=== PATIENT | male | born 1960 ===

== ENCOUNTER 2017-10-19 14:12 | Emergency (ER) | payer OTHER ==
[2017-10-19 14:19] VITALS: BP 108/73
[2017-10-19] MEDS ORDERED: Lidocain 1% EPI 1:100,000 * 30 ML MDV INJ ONE (15:15)
[2017-10-19] MEDS ORDERED: Lidocaine 1%* 5 ML VIAL ONE (15:16)
--- NOTE | 2017-10-19 15:55 | ED ---
Pavithra Rousseau Jade, scribed for FabianoVirgil simons MD on 10/19/17 at 1539 . Head Injury - HPI Summary HPI Summary: In Room Note: Pt is a 57 y/o male who [place] [facility] [place]. Pt has had Parkinsons Disease for 5 years. According to and daughter, he tripped and hit his head resulting in a laceration over his left eyebrow. The fall itself was not witnessed, but his daughter saw him 30 seconds after and denies any LOC and states he was alert and oriented. Pt denies being injured elsewhere. Nurses Note: Fell injuring head approx 30 min ago, 5/10 pain intensity. Has a bandage over laceration. MD Note: Visit history Parkinsons, vital signs stable. 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 Mechanism Of Injury: Fall From A Standing Position Onset/Duration: Started Minutes Ago - 30 minutes ago Onset of Pain: Post Accident Severity Currently: Moderate Pain Intensity: 5 Pain Scale Used: 0-10 Numeric Location of Head Injury: Other: - Over left eyebrow - Allergies/Home Medications Allergies/Adverse Reactions: Allergies Allergy/AdvReac Type Severity Reaction Status Date / Time No Known Allergies Allergy Verified 10/19/17 14:21 PMH/Surg Hx/FS Hx/Imm Hx Endocrine/Hematology History: Denies: Hx Diabetes Cardiovascular History: Denies: Hx Hypertension, Hx Pacemaker/ICD History: Denies: Hx Dialysis, Hx Renal Disease Sensory History: Denies: Hx Hearing Aid Neurological History: Reports: Other Neuro Impairments/Disorders - Hx of persistent headaches 7 yr ago, [place] [facility] [place] Parkinson's Dz Psychiatric History: Denies: Hx Panic Disorder - Surgical History Surgery Procedure, Year, and Place: appendectomy at age 12 Infectious Disease History: No Infectious Disease History: Denies: Traveled Outside the [place] in Last 30 Days - Family History Known Family History: Negative: Hypertension - Social History Alcohol Use: None Substance Use Type: Reports: None Smoking Status (MU): Never Smoked Tobacco Review of Systems - ROS Summary Review of Systems Summary: POSITIVE: Laceration over left eyebrow, head pain NEGATIVE: LOC, musculoskeletal pain Positive: Other - Head pain. Negative: Fever Negative: Shortness Of Breath Positive: Other - Laceration over left eyebrow Neurological: Other - NEGATIVE LOC All Other Systems Reviewed And Are Negative: Yes Physical Exam - Summary Physical Exam Summary: Appearance: Pt is sitting stiff in a wheelchair. Minimally responsive due to Parkinsons Disease, but does appear to understand and answer appropriately. Eyes: Conjunctiva are clear. The globe of the eye doesnt appear to be involved. Mild swelling of the upper left lid. PERRLA. EOMI. Examination of the head is abnormal, with evidence of injury. No zygomatic step off, or hemotympanum. ENT: The hearing is grossly normal, the pharynx is normal, and the TMs are normal. There is no muffled or hoarse voice. Neck: The neck is supple and there is no lymphadenopathy. Respiratory: The chest is nontender. The lungs are clear, there are normal breath sounds, and there is no respiratory distress. Cardiovascular: Heart is regular rate and rhythm. There is no murmur. Abdomen: The abdomen is soft and nontender. There is no organomegaly. Bowel sounds: present Musculoskeletal: Strength is intact. The patient moves all extremities. Palpation of the spine produces no tenderness. Neurological: The patient is alert. Psychological: The patient displays age appropriate behavior. Skin: Negative for rashes. Face shows 3.0 cm linear laceration over the lateral aspect of the left eyebrow. Triage Information Reviewed: Yes Vital Signs On Initial Exam: Initial Vitals Temp Pulse Resp BP Pulse Ox 97.4 F 72 16 108/73 100 10/19/17 14:15 10/19/17 14:15 10/19/17 14:15 10/19/17 14:15 10/19/17 14:15 Vital Signs Reviewed: Yes Procedures - Laceration/Wound Repair 1 Location: head - Left eyebrow Description: Linear Anesthesia: Lido - Lidocaine without epinephrine Length, Depth and Shape: 3 cm linear laceration open to 3 mm over the left eyebrow. The area was cleaned, prepped, and draped. Lidocaine w/o epinephrine was injected with good analgesia. 9 5-0 proline sutures were placed in a running fashion. Good approximation and hemostasis. The area was dressed. Approximation after repair was < 1 mm. Betadine Prep?: Yes Laceration/Wound Explored: clean Suture Type: Prolene - 5-0 Number of Sutures: 9 Sterile Dressing Applied?: Yes Diagnostics - Vital Signs Vital Signs Temp Pulse Resp BP Pulse Ox 10/19/17 14:15 97.4 F 72 16 108/73 100 - Laboratory Lab Statement: Any lab studies that have been ordered have been reviewed, and results considered in the medical decision making process. Head Injury Course/Dx Course Of Treatment: Parkinson patient with injury above the left eyebrow from a fall. Eyebrow is swollen but there is no injury to the globe itself. The area was sutured with good result. Patient and family were instructed on care and the sutures will be removed in 5 days. - Diagnoses Differential Diagnosis/HQI/PQRI: Laceration Provider Diagnoses: Laceration of left eyebrow Discharge - Sign-Out/Discharge Documenting (check all that apply): Discharge/Admit/Transfer - Discharge Plan Condition: Stable Disposition: HOME Patient Education Materials: Laceration (ED) Referrals: Babs Dover MD [Primary Care Provider] - Additional Instructions: WE DISCUSSED: sutures out in 5 days. clean morning and night. Use gentle soap and warm water. Apply antibiotic ointment. Watch for any signs of infection such as increased redness. No injury of URI seen and there should be no new visual problems. If there are , really recheck The documentation as recorded by the Pavithra martinez Jade accurately reflects the service I personally performed and the decisions made by me, Virgil Pradhan MD.
== END 2017-10-19 15:51 | disposition home or self-care (01) ==
LOC: UCEAST 14:12
DX: S01.112A Laceration without foreign body of left eyelid and periocular area, initial encounter (principal); W01.0XXA Fall on same level from slipping, tripping and stumbling without subsequent striking against object, initial encounter; Y93.9 Activity, unspecified; Y92.9 Unspecified place or not applicable; G20 Parkinson's disease
CPT/HCPCS: 12013; 99211; G0463